=== PATIENT | male | born 1985 | race Caucasian/White ===

== ENCOUNTER 2016-10-23 01:06 | Emergency (ER) | payer MEDICAID ==
[~2016-10-23] VITALS: Ht 198.1 cm; Wt 86.2 kg
[2016-10-23 01:24] VITALS: BP 107/87
[2016-10-23 03:34] LABS: Basophils # (auto) 0 uL; Basophils % (auto) 0.4 % (0.0-2.0); Eosinophils # (auto) 0.2 uL; Eosinophils % (auto) 2.6 % (0.0-7.0); Hemoglobin 13.9 g/dL (13.5-17.5); Lymphocytes # (auto) 2.1 uL; Mean Corpuscular Hemoglobin 29.7 pg (28.0-32.0); Mean Corpuscular Hgb Conc. 33.2 g/dL (32.0-36.0); Mean Corpuscular Volume 89.4 fL (80.0-100.0); Mean Platelet Volume 8.6 fL (7.4-10.4); Monocytes # (auto) 0.6 uL; Neutrophils # (auto) 4.2 uL; Platelet Count (auto) 202 10^3/uL (140-450); Red Cell Distribution Width 12.8 % (11.6-16.0); White Blood Cell 7.2 10^3/uL (4.4-10.8)
[2016-10-23 03:58] LABS: Albumin 3.8 g/dL (3.4-5.0); BUN/Creatinine Ratio 18.7; Bilirubin, Total 0.5 mg/dL (0.2-1.0); Calcium 8.9 mg/dL (8.5-10.1); Potassium 3.4 mmol/L (3.5-5.1); Total Protein 7.1 g/dL (6.4-8.2); Uric Acid 5.9 mg/dL (3.5-7.2)
[2016-10-23] MEDS ORDERED: FLUCONAZOLE 100 MG TAB PO ONE (04:15)
[2016-10-23] MEDS ORDERED: IBUPROFEN 600 MG TAB PO ONE (04:15)
== END 2016-10-23 04:24 | disposition home or self-care (01) ==
LOC: ER 01:08
DX: L03.116 Cellulitis of left lower limb (principal); F12.10 Cannabis abuse, uncomplicated; F15.10 Other stimulant abuse, uncomplicated
CPT/HCPCS: 36415; 73610; 80053; 84550; 85025

== ENCOUNTER 2017-11-24 19:02 | Emergency (ER) | payer MEDICAID ==
[~2017-11-24] VITALS: Ht 198.1 cm; Wt 86.2 kg
[2017-11-24 19:25] VITALS: BP 144/94
== END 2017-11-24 22:41 | disposition home or self-care (01) ==
LOC: ER 19:02 → EDBD 19:02 → ER 22:41
DX: T40.1X1A Poisoning by heroin, accidental (unintentional), initial encounter (principal); F17.210 Nicotine dependence, cigarettes, uncomplicated; F12.10 Cannabis abuse, uncomplicated; F11.10 Opioid abuse, uncomplicated; Y92.89 Other specified places as the place of occurrence of the external cause

== ENCOUNTER 2018-06-09 16:48 | Emergency (ER) | payer MEDICAID ==
[~2018-06-09] VITALS: Ht 198.1 cm; Wt 83.9 kg
[2018-06-09 17:11] VITALS: BP 128/78
[2018-06-09] MEDS ORDERED: cefTRIAXone SOD 1,000 MG VL IM ONE (19:30)
[2018-06-09] MEDS ORDERED: KETOROLAC TROMETH 60MG/2ML VIAL IM ONE (19:30)
== END 2018-06-09 20:32 | disposition home or self-care (01) ==
LOC: ER 16:58
DX: L02.413 Cutaneous abscess of right upper limb (principal); F17.210 Nicotine dependence, cigarettes, uncomplicated; F15.10 Other stimulant abuse, uncomplicated; F11.10 Opioid abuse, uncomplicated
CPT/HCPCS: 96372; 99283; J0696; J1885

== ENCOUNTER 2022-04-21 10:16 | Emergency (ER) | payer MEDICAID ==
[~2022-04-21] VITALS: Ht 198.1 cm; Wt 86.6 kg
[2022-04-21 10:59] VITALS: BP 129/87
[2022-04-21] MEDS ORDERED: cefTRIAXone SOD 1,000 MG VL IM ONE (11:45)
[2022-04-21] MEDS ORDERED: BACDST PO (12:17)
[2022-04-21] MEDS ORDERED: IBUP800T27 PO (12:17)
== END 2022-04-21 12:25 | disposition home or self-care (01) ==
LOC: ER 10:16
DX: L02.413 Cutaneous abscess of right upper limb (principal); F17.210 Nicotine dependence, cigarettes, uncomplicated; Z79.1 Long term (current) use of non-steroidal anti-inflammatories (NSAID); Z79.899 Other long term (current) drug therapy
CPT/HCPCS: 96372; 99283; J0696

== ENCOUNTER 2023-07-22 02:55 | Emergency (ER) | payer MEDICAID ==
[~2023-07-22] VITALS: Ht 195.6 cm; Wt 86.5 kg
[~2023-07-22 02:55] MED LIST: BACDST PO; IBUP-1456 PO
[2023-07-22] MEDS ORDERED: cefTRIAXone SOD 1,000 MG VL IM ONE (04:15)
[2023-07-22] MEDS ORDERED: CLINDAMYCIN HCL 150 MG CAP PO ONE (04:15)
[2023-07-22] MEDS ORDERED: AMOX500T3 PO (04:20)
[2023-07-22] MEDS ORDERED: CLIN300C70 PO (04:20)
[2023-07-22 04:24] LABS: Basophils # (auto) 0 10 ^3/uL (0-0.2); Basophils % (auto) 0.4 % (0.0-2.0); Eosinophils # (auto) 0.2 10 ^3/uL (0-0.8); Hematocrit 38.2 % (41.0-53.0); Hemoglobin 12.9 g/dL (13.5-17.5); Lymphocytes # (auto) 1.8 10 ^3/uL (0.4-5.4); Lymphocytes % (auto) 24.1 % (10.0-50.0); Mean Corpuscular Hemoglobin 29.6 pg (28.0-32.0); Mean Corpuscular Hgb Conc. 33.8 g/dL (32.0-36.0); Mean Corpuscular Volume 87.4 fL (80.0-100.0); Monocytes # (auto) 0.7 10 ^3/uL (0-1.3); Monocytes % (auto) 9.7 % (0.0-12.0); Neutrophils # (auto) 4.7 10 ^3/uL (1.6-8.6); Neutrophils % (auto) 62.8 % (37.0-80.0); Red Blood Cells 4.37 10^6/uL (4.5-5.90); Red Cell Distribution Width 12.7 % (11.8-14.3); White Blood Cell 7.4 10^3/uL (4.4-10.8)
[2023-07-22 04:41] LABS: Anion Gap 6 (5-15); Carbon Dioxide 26 mmol/L (20-30); Chloride 108 mmol/L (98-107); Potassium 3.9 mmol/L (3.5-5.1); Sodium 140 mmol/L (136-145)
[2023-07-22 04:47] LABS: Blood Urea Nitrogen 10 mg/dL (9-23); Glucose 104 mg/dL (74-106)
[2023-07-22 05:06] VITALS: BP 133/64; PULSE 99; RESP 18; TEMP 98; O2SAT 100
== END 2023-07-22 04:53 | disposition home or self-care (01) ==
LOC: ER 02:55
DX: L03.116 Cellulitis of left lower limb (principal); L03.115 Cellulitis of right lower limb; F17.210 Nicotine dependence, cigarettes, uncomplicated; F15.10 Other stimulant abuse, uncomplicated; F13.10 Sedative, hypnotic or anxiolytic abuse, uncomplicated; F11.10 Opioid abuse, uncomplicated
CPT/HCPCS: 36415; 80048; 85025; 96372; 99283; J0696

== ENCOUNTER 2024-01-05 12:39 | Emergency (ER) | payer MEDICAID ==
[~2024-01-05] VITALS: Ht 198.1 cm; Wt 87.7 kg
[~2024-01-05 12:39] MED LIST changes: +AMOX500T3 PO; +CLIN1CAP70 PO
[2024-01-05 15:29] VITALS: BP 137/79; PULSE 94; RESP 17; TEMP 98.3; O2SAT 97
== END 2024-01-05 15:31 | disposition home or self-care (01) ==
LOC: ER 12:39
DX: K42.9 Umbilical hernia without obstruction or gangrene (principal); F19.20 Other psychoactive substance dependence, uncomplicated; F17.210 Nicotine dependence, cigarettes, uncomplicated
CPT/HCPCS: 76705